=== PATIENT | female | born 1990 | race Hispanic/Latino ===

== ENCOUNTER 2018-06-08 14:14 | Inpatient (IN) | payer BC ==
[2018-06-08 15:21] VITALS: BMI 46.0
[2018-06-08] MEDS ORDERED: Lactated Ringer's 1,000 ML IV ONE ×2 (18:50→18:52)
[2018-06-08] MEDS ORDERED: OXYTOCIN/0.9 % NS 20 UNIT/1,000 ML BAG IV ONE (18:53)
[2018-06-08] MEDS ORDERED: Oxytocin 30 UNIT in NS 500 ml 30 UNITS/500 ML BAG IV ONE (19:00)
[2018-06-08 20:10] LABS: BASO # 0.1 K/uL (0.0-0.2); BASO % 0.9 % (0.0-2.0); EOS # 0.1 K/uL (0.0-0.7); EOS % 1.2 % (0.0-4.0); LYMPH # 1.8 K/uL (1.0-4.3); LYMPH % 21.6 % (20.0-40.0); MEAN CELL VOLUME 78.1 fl (81.0-99.0); MEAN CORPUSCULAR HEMOGLOBIN 25.9 pg (27.0-31.0); MEAN CORPUSCULAR HGB CONC 33.2 g/dL (33.0-37.0); MEAN PLATELET VOLUME 8.6 fl (7.2-11.7); MONO # 0.6 K/uL (0.0-0.8); MONO % 7.4 % (0.0-10.0); NEUT # 5.7 K/uL (1.8-7.0); NEUT % 68.9 % (50.0-75.0); RBC 4.65 Mil/uL (3.80-5.20); RED CELL DISTRIBUTION WIDTH 14.6 % (11.5-14.5); WHITE BLOOD COUNT 8.3 K/uL (4.8-10.8)
[2018-06-08 20:45] VITALS: O2SAT 99
[2018-06-08] MEDS: Lactated Ringer's 1,000 ML IV ONE (22:35)
[2018-06-09] MEDS: Lactated Ringer's 1,000 ML IV ONE (04:11)
[2018-06-09] MEDS ORDERED: Nalbuphine HCL 10 mg/ml Ampule ONE (04:28)
[2018-06-09] MEDS: Nalbuphine HCL 10 mg/ml Ampule IVP PRN (04:48)
--- NOTE | 2018-06-09 08:43 | OBADHP ---
Datetime: 06/08/2018 15:25 Admit Comment, IP Provider: PNP: Dr. Malone 28 y/o @ 40.6wks FARTUN 06/02/2018, based on LMP-08/26/2017 sent by PNP for ultrasound. Patient en dorses +FM, and denies ctx, vb, lof, f/c/n/v/diarrhea, cp, sob or lightheadedness. OBGYnhx: denies PMH: denies Meds: PNV Allergies: sulfa-rash/hives Surghx: denies Sochx: denies ROS: 12 points reviewed and are neg unless otherwise mentioned in HPI PE: Gen: obese female breathing comfortably Cardio: s1s2 RRR Lungs: cta b/l Abd: Gravid, soft, nontender, no rigidity, no guarding Ext: calves nonedematous A/P: 28 y/o @ 40.6wks, clinically stable, FARTUN 06/02/2018, based on LMP-08/26/2017 sent by PNP f or BPP. -If BPP wnl, discharge home Case discussed with Dr. Malone -Maryann Bartholomew, PGY-1 Addendum: Patient's BPP 8 out of 8, but JAVON 6.5. Discussed options with patient and recommended induction o f labor due to borderline amniotic fluid levels. Patient agreeing with induction of labor. Discusse d plan with patient and all patient questions answered. Cervidil placed Extremities - PN: Normal Abdomen - PN: Normal Lungs - PN: Normal Heart - PN: Normal General - PN: Normal FHR - Baseline A Provider: 130's Gestation - Est Wks by US: 40.6 IP Hx Assessment: The History has been Updated Vital Signs Provider: Reviewed; Within Normal Limits IP Chief Complaint: Other NICHD Variability Prov Fetus A: Moderate 6-25bpm NICHD Accel Fetus A IP Provider: [id number] FHR Category Provider Fetus A: Category I NICHD Decel Fetus A IP Provider: None Dilatation, Provider: 0 Effacement, Provider: 25 Station, Provider: -3 EGA AdmitDate IP: 40.6 IP Adm Impression: Term, intrauterine IP Admit Plan: Observation/Evaluation
[2018-06-10] MEDS ORDERED: Nalbuphine HCL 10 mg/ml Ampule ONE (00:57)
[2018-06-10] MEDS ORDERED: Nalbuphine HCL 10 mg/ml Ampule IVP PRN ×2 (01:00→15:21)
[2018-06-10] MEDS: Nalbuphine HCL 10 mg/ml Ampule IVP PRN (01:01)
[2018-06-10] MEDS: Lactated Ringer's 1,000 ML IV SCH ×5 (03:00→11:59)
[2018-06-10] MEDS ORDERED: Fentanyl/Bupivacaine HCl 250 ML EPI ONE (03:54)
[2018-06-10] MEDS ORDERED: Oxytocin 30 UNIT in NS 500 ml 30 UNITS/500 ML BAG IV ONE ×3 (08:30→16:38)
--- NOTE | 2018-06-10 09:25 | OBPN ---
Datetime: 06/10/2018 09:14 IP Progress Impression: Normal progression of labor IP Informed Consent Obtain: Vaginal Delivery IP Procedures: Sterile Vag Exam IP Progress Plan: Continue present management Membranes, Provider: Ruptured Amniotic Fluid Color, Provider: Bloody Contraction Comments Provider: q 4 mins FHR - Baseline A Provider: 125 IP Progress Note Comment: Patient evaluated, feeling slight pressure/pain, but otherwise comfortable with epidural VE = 9/100/0 GFE=[id number] mod kathie, +accels, no decels TOCO = enrique q 4 mins A/P 1. Patient enrique, pitocin started for augmentation 2. CEFM and TOCO 3. Re-evaluate as needed NICHD Accel Fetus A IP Provider: [id number] NICHD Variability Prov Fetus A: Moderate 6-25bpm Dilatation, Provider: ant lip Effacement, Provider: 100 Station, Provider: 0 NICHD Decel Fetus A IP Provider: None Datetime: 06/08/2018 15:25 Gestation - Est Wks by US: 40.6 Vital Signs Provider: Reviewed; Within Normal Limits FHR Category Provider Fetus A: Category I
--- NOTE | 2018-06-10 10:29 | US ---
Date of service: 06/08/2018 PROCEDURE: Limited obstetrical ultrasound examination HISTORY: BPP with fluid assessment COMPARISON: Not available TECHNIQUE: Transabdominal FINDINGS: There is a single live intrauterine gestation in cephalic presentation. heart rate 130 beats per minute. Grossly normal amniotic fluid volume. Cervix closed. It measures 2.2 cm in length, somewhat shortened. biometry yields gestational age of 38 weeks 0 days. FARTUN by ultrasound is 06/22/2018. EFW 3269 g. Limited biophysical profile examination yields a score of 8 out of 8. IMPRESSION: Single live intrauterine gestation of approximately 38 weeks 0 days gestational age. Cephalic presentation. Limited evaluation. Placenta, anatomy common not evaluated. EFW 3269 g. Biophysical profile score 8 out of 8. The preliminary findings for this examination were reported by [facility] at 5:45 p.m. on 06/08/2018. There is concurrence of this report with the preliminary findings.
[2018-06-10] MEDS ORDERED: Oxycodone/Acetaminophen 5/325 mg Tab PO PRN ×2 (13:13→15:21)
[2018-06-10] MEDS ORDERED: Benzocaine/Menthol SPRAY TOP PRN (13:13)
--- NOTE | 2018-06-10 14:02 | OBDS ---
DELIVERY PERSONNEL Delivery Doctor: Susu Francis MD Video Poker Floorman: Tamanna Hahn RN MATERNAL INFORMATION Delivery Anesthesia: Epidural Medications in Delivery: Pitocin Estimated Blood Loss (ml): 200 Placenta Cultured: No Maternal Complications: None RN Comments: Atraumatic of a viable babybooy with lusty cry. SKin to skin initiated. as signed 9/9 APGARS. Patient tolerated delivery and repair well. Patient and infant bonding Provider Comments: of live female infant over intact perineum, RADHA with loose body cord, follow ed by rest of infant atraumatically, mouth and nose suctioned, cord clamped and cut, infant placed on mother's chest, cord blood obtained, placenta delivered spontaneously, fundus firm, periurethral lac erations repaired with 3-0 vicryl rapide, 2nd degree laceration repaired with 2-0 vicrly rapide, EBL = 200mL, red rubber tip catheter inseted, bladder drained successfully, pt tolerated procedure well LABOR SUMMARY EDC: 06/02/2018 00:00 No. Babies in Womb: 0 Attempted: No Labor Anesthesia: Epidural LABOR INFORMATION Reason for Induction: Postterm; Intrauterine Growth Retardation Onset of Labor: 06/10/2018 05:00 Complete Dilatation: 06/10/2018 10:30 Cervical Ripening Agents: Cervidil (Annotations: Inserted by Dr. Ervin) Oxytocin: Induction Group B Beta Strep: Negative Antibiotics # of Doses: 0 Steroids Given: None Reason Steroids Not Administered: Not Applicable MEMBRANES Membranes Rupture Method: Spontaneous Rupture of Membranes: 06/10/2018 09:00 Length of Rupture (hrs): 2.98 Amniotic Fluid Color: Bloody Amniotic Fluid Amount: Small Amniotic Fluid Odor: Normal STAGES OF LABOR Stage 1 hrs: 5 Stage 1 min: 30 Stage 2 hrs: 1 Stage 2 min: 29 Stage 3 hrs: 0 Stage 3 min: 9 Total Time in Labor hrs: 7 Total Time in Labor min: 8 VAGINAL DELIVERY Episiotomy: None Laceration Extension: Second Degree Laceration Type: Perineal Other Laceration: Periuretheral tear Laceration Repair: Yes Initial Vag Sponge Count: 5 Final Vag Sponge Count: 5 Initial Vag Sharps Count: 3 Final Vag Sharps Count: 3 Sponge Count Correct: Yes Sharps Count Correct: Yes Count Comment: 20 4x4 and 5 laps with rings BABY A INFORMATION Infant Delivery Date/Time: 06/10/2018 11:59 Method of Delivery: Vaginal Born in Route : No : N/A Forceps: N/A Vacuum Extraction: N/A Shoulder Dystocia : No SHOULDER DYSTOCIA BABY A Delivery Date/Time: 06/10/2018 11:59 PRESENTATION/POSITION BABY A Presentation: Cephalic Cephalic Presentation: Vertex Vertex Position: Left Occipital Anterior Breech Presentation: N/A PLACENTA INFORMATION BABY A Placenta Delivery Time : 06/10/2018 12:08 Placenta Method of Delivery: Spontaneous Placenta Status: Delivered SCORES BABY A Heart Rate 1 min: >100 bpm Resp Effort 1 min: Good Cry Reflex Irritability 1 min: Cough or Sneeze or Pulls Away Muscle Tone 1 min: Active Motion Color 1 min: Body [place], Extremities Blue Resuscitation Effort 1 min: N/A SCORE 1 MIN: 9 Heart Rate 5 min: >100 bpm Resp Effort 5 min: Good Cry Reflex Irritability 5 min: Cough or Sneeze or Pulls Away Muscle Tone 5 min: Active Motion Color 5 min: Body [place], Extremities Blue Resuscitation Effort 5 min: N/A SCORE 5 MIN: 9 INFANT INFORMATION BABY A Gestational Age at Delivery: 41.0 Gestational Status: Term Outcome : Liveborn Condition : Stable Infant Sex: Female IDENTIFICATION/MEDS BABY A ID Band Number: [id number] ID Band Location: Left Leg; Left Arm WEIGHT/LENGTH BABY A Infant Birthweight (gms): 3450 Infant Weight (lb): 7 Weight (oz): 10 CORD INFORMATION BABY A No. 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
[2018-06-10] MEDS: Benzocaine/Menthol SPRAY TOP PRN (20:22)
[2018-06-11 07:52] LABS: BASO % 0.5 % (0.0-2.0); EOS # 0.1 K/uL (0.0-0.7); EOS % 1.2 % (0.0-4.0); HEMOGLOBIN 9.3 g/dL (12.0-16.0); LYMPH # 1.8 K/uL (1.0-4.3); LYMPH % 18.7 % (20.0-40.0); MEAN CELL VOLUME 78.9 fl (81.0-99.0); MEAN CORPUSCULAR HEMOGLOBIN 26.3 pg (27.0-31.0); MEAN CORPUSCULAR HGB CONC 33.3 g/dL (33.0-37.0); MEAN PLATELET VOLUME 8.6 fl (7.2-11.7); MONO # 0.6 K/uL (0.0-0.8); MONO % 6.2 % (0.0-10.0); NEUT # 7.2 K/uL (1.8-7.0); NEUT % 73.4 % (50.0-75.0); NRBC % 0.1 % (0.0-0.0); RBC 3.54 Mil/uL (3.80-5.20); RED CELL DISTRIBUTION WIDTH 14.5 % (11.5-14.5); WHITE BLOOD COUNT 9.9 K/uL (4.8-10.8)
[2018-06-11] MEDS: Multivitamin With Minerals Tab PO SCH (08:18)
[2018-06-11] MEDS: Benzocaine/Menthol SPRAY TOP PRN (08:19)
[2018-06-11] MEDS ORDERED: Multivitamin With Minerals Tab PO SCH (09:00)
--- NOTE | 2018-06-11 16:30 | OBPPN ---
Datetime: 06/11/2018 16:25 PP Pain Prov: Within normal limits PP Nausea Prov: Denies PP Flatus Prov: Yes PP Breasts Prov: Normal PP Heart Prov: Normal PP Lungs Prov: Normal PP Abdomen/Uterus Prov: Normal PP Lochia Prov: Normal PP Vulva/Perineum Prov: Normal PP CVA Tenderness Prov: Normal PP Extremities Prov: Normal PP Progress Prov: Normal PP Impression Prov: Normal progression PP Progress Note Prov: She feels fine H/H 12/13 A: S/P day 1 cont care
[2018-06-12] MEDS: Multivitamin With Minerals Tab PO SCH (08:35)
--- NOTE | 2018-06-12 09:20 | OBPPN ---
Datetime: 06/12/2018 09:18 PP Pain Prov: Within normal limits PP Nausea Prov: Denies PP Flatus Prov: Yes PP Breasts Prov: Not Done PP Heart Prov: Normal PP Lungs Prov: Normal PP Abdomen/Uterus Prov: Normal PP Lochia Prov: Not Done PP Vulva/Perineum Prov: Not Done PP CVA Tenderness Prov: Normal PP Extremities Prov: Normal PP Impression Prov: Normal progression PP Plan Prov: Discharge PP Progress Note Prov: Patient doing well ambulating tolerating diet pain well controlled Vital signs stable afebrile Uterus firm below the umbilicus Extremities no Homans's day #2 Discharge home, no heavy lifting, nothing per vagina, Motrin as needed Vital Signs Provider PP: Reviewed
[2018-06-12 18:16] VITALS: BP 121/71; PULSE 83; RESP 20; TEMP 98.4
--- NOTE | 2018-06-14 14:14 | CP.PCM.PN ---
Subjective - Date & Time of Evaluation Date of Evaluation: 06/10/18 Time of Evaluation: 13:00 - Subjective Subjective: patient get 150 ml fentanyl bupivacaine wasted 100 ml mercaine 0.125% with fentanyl Objective - Vital Signs/Intake and Output Vital Signs (last 24 hours): Temp Pulse Resp BP Pulse Ox 98.4 F 83 20 121/71 99 06/12/18 18:15 06/12/18 18:15 06/12/18 18:15 06/12/18 18:15 06/12/18 18:15 - Labs Labs: 06/11/18 07:15
== END 2018-06-12 13:48 | disposition home or self-care (01) | DRG 807 ==
LOC: H.EROB2 14:14 → H.L&D 18:50 → H.OB/GYN 06-10 15:00
PROVIDERS: ADMIT Obstetrics & Gynecology; ATTEND Obstetrics & Gynecology
PROC: 4A1HXCZ Monitoring of Products of Conception, Cardiac Rate, External Approach (ICD-10-PCS; 2018-06-08)
PROC: 10E0XZZ Delivery of Products of Conception, External Approach (ICD-10-PCS; principal; 2018-06-10)
PROC: 0KQM0ZZ Repair Perineum Muscle, Open Approach (ICD-10-PCS; 2018-06-10)
PROC: 0UQMXZZ Repair Vulva, External Approach (ICD-10-PCS; 2018-06-10)
DX: O41.03X0 Oligohydramnios, third trimester, not applicable or unspecified (principal); Z37.0 Single live birth; Z3A.41 41 weeks gestation of pregnancy; O70.1 Second degree perineal laceration during delivery; O71.82 Other specified trauma to perineum and vulva; O48.0 Post-term pregnancy